=== PATIENT | female | born 1960 | race Caucasian/White ===

== ENCOUNTER 2017-06-13 23:24 | Inpatient (IN) | payer MEDICARE ==
[2017-06-13] MEDS ORDERED: LORazepam 2 MG/ML INJ IM STA ×2 (23:35→23:52)
[2017-06-13] MEDS ORDERED: risperiDONE 1 MG TAB PO STA (23:36)
[2017-06-13] MEDS ORDERED: diphenhydrAMINE 50 MG/ML 1 ML VIAL IM STA (23:36)
[2017-06-13] MEDS ORDERED: SODIUM CHLORIDE 0.9% 1,000 ML IV STA (23:38)
--- NOTE | 2017-06-13 23:55 | ED ---
Psych HPI - General Source: EMS Mode of arrival: EMS <Rodrigue Willingham - Last Filed: 06/14/17 02:02> <Yuri Aj - Last Filed: 06/14/17 03:00> - General Chief Complaint: Psychiatric Symptoms Stated Complaint: Mental health Time Seen by Provider: 06/13/17 23:35 - History of Present Illness Initial Comments: Patient brought in for psychiatric evaluation. Patient has a history of bipolar , depression, autism per EMS. reports patient has been rambling and talking repeatedly all day. He states patient was seen by her psychiatrist as an outpatient and office today, they talked for about 2 hours and patient calm down, however when they got home patient began rambling repeatedly again. states patient has recurrent episodes like this. states patient administers her own medications, does not know for sure if she took them today. Denies patient ever using drugs or alcohol. Denies suspicion of overdose of drugs. states he has patient bottles and none were missing. Denies violent or aggressive behavior. states she just talks and talks repeatedly. Denies self-harm. Denies suicidal ideation. Denies homicidal ideation. state patient knows where she is, what she is doing , what his name is, who she is, however she just rambles on talking about things. History Limited as patient unable to provide any history. (Rodrigue Willingham) - Related Data Home Medications Medication Instructions Recorded Confirmed Levothyroxine Sodium [Synthroid] 100 mcg PO DAILY 08/07/13 06/14/17 OXcarbazepine [Trileptal] 450 mg PO BID 08/07/13 06/14/17 Venlafaxine HCl ER [Effexor Xr] 300 mg PO DAILY 08/07/13 06/14/17 Zaleplon 20 mg PO HS 08/07/13 06/14/17 clonazePAM [KlonoPIN] 0.5 mg PO DIRECTED PRN 08/07/13 06/14/17 lamoTRIgine 200 mg PO BID 08/07/13 06/14/17 risperiDONE 0.25 mg PO HS 08/07/13 06/14/17 Allergies Allergy/AdvReac Type Severity Reaction Status Date / Time latex Allergy Severe Rash/Hives, Verified 08/07/13 11:35 severe pain Sulfa (Sulfonamide Allergy Severe Dyspnea Verified 08/07/13 11:35 Antibiotics) Review of Systems ROS Other: All systems not noted in ROS Statement are negative. Limitations: ROS unobtainable due to patients medical condition Psychiatric: Reports: other (Rambling speech). Denies: homicidal thoughts, suicidal thoughts <Rodrigue Willingham P - Last Filed: 06/14/17 02:02> ROS Other: All systems not noted in ROS Statement are negative. <Yuri Aj - Last Filed: 06/14/17 03:00> ROS Statement: Those systems with pertinent positive or pertinent negative responses have been documented in the HPI. Past Medical History Past Medical History: Asthma Additional Past Medical History / Comment(s): 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, elevated bp-no rx, IBS,constipation, interstitial cystitis, hypoglycemia, "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 autism and aspergers" History of Any Multi-Drug Resistant Organisms: None Reported Past Surgical History: Back Surgery Additional Past Surgical History / Comment(s): pain stimulator-inserted/removed Past Anesthesia/Blood Transfusion Reactions: No Reported Reaction Past Psychological History: Anxiety, Bipolar, PTSD Smoking Status: Never smoker <Rodrigue Willingham P - Last Filed: 06/14/17 02:02> General Exam General appearance: alert Head exam: Present: atraumatic, normocephalic Eye exam: Present: normal appearance, PERRL, EOMI. Absent: scleral icterus, conjunctival injection, nystagmus Pupils: Present: normal accommodation, other (Pupils 4 mm and reactive bilaterally. Eye movements intact bilaterally.). Absent: unequal, miosis, mydriatic ENT exam: Present: normal exam, normal oropharynx, mucous membranes moist, other (Mucous membranes moist, no increase salivation) Neck exam: Present: normal inspection, full ROM, other (Range of motion of the neck. No meningismus). Absent: meningismus Respiratory exam: Present: normal lung sounds bilaterally, other (No rest for distress. Oxygen saturation 90% on room air. No tachypnea. No accessory muscle usage.). Absent: respiratory distress, wheezes, rales, rhonchi, stridor Cardiovascular Exam: Present: regular rate, tachycardia (Mild tachycardia.) GI/Abdominal exam: Present: soft. Absent: distended, tenderness, guarding, rebound, rigid (Obese) Extremities exam: Present: normal inspection, normal capillary refill. Absent: joint swelling Back exam: Present: normal inspection Neurological exam: Present: alert, other (Patient moves all extremities. GCS 15. Patient does not follow commands when asked. Patient does have purposeful movements.) Psychiatric exam: Present: anxious, manic, other (Patient has pressured rapid speech, tangential speech, talking about going to the airport, tach and her doctors are, patient can briefly be redirected when handed her phone, but then begins rambling off topic again. ). Absent: agitated, homicidal ideation, suicidal ideation Skin exam: Present: warm, dry, intact, normal color. Absent: diaphoretic (No flushing, no diaphoresis, skin warm and dry intact, no abnormalities of the skin appreciated.) <Rodrigue Willingham - Last Filed: 06/14/17 02:02> <Yuri Aj - Last Filed: 06/14/17 03:00> - General Exam Comments Initial Comments: Patient sitting up in bed, moving all extremities, alert, repetitively talking. Makes eye contact. Does not commands. Patient does have purposeful movements. Patient does not appear in pain. Patient did not appear infectious or sickly. (Rodrigue Willingham) Vital Signs 06/13/17 06/14/17 06/14/17 23:26 00:13 02:06 Temperature 98.1 F 97.2 F L Pulse Rate 107 H 96 Respiratory 24 20 Rate Blood Pressure 218/92 177/80 O2 Sat by Pulse 98 99 Oximetry Medical Decision Making - Lab Data Result diagrams: 06/14/17 00:50 06/14/17 00:50 <Rodrigue Willingham - Last Filed: 06/14/17 02:02> - Lab Data Result diagrams: 06/14/17 00:50 06/14/17 00:50 <Yuri Aj - Last Filed: 06/14/17 03:00> - Medical Decision Making Patient has a history of anxiety, on Klonopin, 2 mg Ativan given. 50 mg Benadryl given. EKG normal sinus rhythm, wandering baseline as patient was agitated, no obvious ST or T-wave changes appreciated, QTc 480. QRS 78 ms ND 144 Patient appears to be having psychotic manic episode, with rapid pressured speech. Temperature normal. At this time no obvious indications of serotonin syndrome, NMS, anticholanergic toxicity. No reported overdose on medications. We'll continue to monitor and give supportive care. We'll give night dose of Risperdal. Venlafaxine held for possible serotonin syndrome given elevated heart rate and blood pressure. does state that patient has typical episodes like this, that symptoms were able to be resolved by discussion with her psychiatrist in office today, and then symptoms returned after patient left psychiatrist office. Symptoms may be secondary to brandon, behavioral. We'll have psych come and evaluate patient in ER. Patient signed out to Dr. Aj, we'll continue monitoring patient, follow-up on site evaluation and recommendations. (Rodrigue Willingham) - Lab Data Lab Results 06/14/17 06/14/17 06/14/17 Range/Units 00:50 00:50 02:40 WBC 11.4 H (3.8-10.6) k/uL RBC 4.45 (3.80-5.40) m/uL Hgb 13.2 (11.4-16.0) gm/dL Hct 38.5 (34.0-46.0) % MCV 86.6 (80.0-100.0) fL MCH 29.6 (25.0-35.0) pg MCHC 34.2 (31.0-37.0) g/dL RDW 13.4 (11.5-15.5) % Plt Count 385 (150-450) k/uL Neutrophils % 81 % Lymphocytes % 12 % Monocytes % 4 % Eosinophils % 1 % Basophils % 0 % Neutrophils # 9.2 H (1.3-7.7) k/uL Lymphocytes # 1.4 (1.0-4.8) k/uL Monocytes # 0.5 (0-1.0) k/uL Eosinophils # 0.1 (0-0.7) k/uL Basophils # 0.0 (0-0.2) k/uL Sodium 138 (137-145) mmol/L Potassium 4.4 (3.5-5.1) mmol/L Chloride 98 (98-107) mmol/L Carbon Dioxide 22 (22-30) mmol/L Anion Gap 18 mmol/L BUN 16 (7-17) mg/dL Creatinine 1.00 (0.52-1.04) mg/dL Est GFR (CKD-EPI)AfAm 74 (>60 ml/min/1.73 sqM) Est GFR (CKD-EPI)NonAf 64 (>60 ml/min/1.73 sqM) Glucose 110 H (74-99) mg/dL Calcium 10.6 H (8.4-10.2) mg/dL Total Bilirubin 0.5 (0.2-1.3) mg/dL Conjugated Bilirubin 0.0 (0.0-0.3) mg/dL Unconjugated Bilirubin 0.2 (0.0-1.1) mg/dL Delta Bilirubin 0.3 H (0.0-0.2) mg/dL AST 51 H (14-36) U/L ALT 44 (9-52) U/L Alkaline Phosphatase 133 H (38-126) U/L Total Protein 7.5 (6.3-8.2) g/dL Albumin 4.8 (3.5-5.0) g/dL TSH 0.887 (0.465-4.680) mIU/L Urine Color Yellow Urine Appearance Clear (Clear) Urine pH 7.0 (5.0-8.0) Ur Specific [place] 1.010 (1.001-1.035) Urine Protein Trace H (Negative) Urine Glucose (UA) Negative (Negative) Urine Ketones Negative (Negative) Urine Blood Negative (Negative) Urine Nitrite Negative (Negative) Urine Bilirubin Negative (Negative) Urine Urobilinogen <2.0 (<2.0) mg/dL Ur Leukocyte Esterase Small H (Negative) Urine RBC 1 (0-5) /hpf Urine WBC 3 (0-5) /hpf Ur Squamous Epith Cells 5 H (0-4) /hpf Hyaline Casts 3 H (0-2) /lpf Urine Mucus Rare H (None) /hpf Salicylates <1.0 mg/dL Urine Opiates Screen Not Detected (NotDetected) Ur Oxycodone Screen Not Detected (NotDetected) Urine Methadone Screen Not Detected (NotDetected) Ur Propoxyphene Screen Not Detected (NotDetected) Acetaminophen <10.0 ug/mL Ur Barbiturates Screen Not Detected (NotDetected) U Tricyclic Antidepress Not Detected (NotDetected) Ur Phencyclidine Scrn Not Detected (NotDetected) Ur Amphetamines Screen Not Detected (NotDetected) U Methamphetamines Scrn Not Detected (NotDetected) U Benzodiazepines Scrn Not Detected (NotDetected) Urine Cocaine Screen Not Detected (NotDetected) U Marijuana (THC) Screen Not Detected (NotDetected) Serum Alcohol <10 mg/dL Disposition Is patient prescribed a controlled substance at discharge?: No <Rodrigue Willingham - Last Filed: 06/14/17 02:02> Time of Disposition: 03:00 <Yuri Aj - Last Filed: 06/14/17 03:00> Clinical Impression: Bipolar disorder with severe brandon Disposition: ADMITTED IP TO THIS [facility] Condition: Good Referrals: Jerome Ford MD [Primary Care Provider] - 1-2 days
[2017-06-14 01:02] LABS: Basophils % (A) 0 %; Eosinophils # (A) 0.1 k/uL (0-0.7); Eosinophils % (A) 1 %; HCT 38.5 % (34.0-46.0); HGB 13.2 gm/dL (11.4-16.0); Lymphocytes # (A) 1.4 k/uL (1.0-4.8); Lymphocytes % (A) 12 %; MCH 29.6 pg (25.0-35.0); MCHC 34.2 g/dL (31.0-37.0); MCV 86.6 fL (80.0-100.0); Mean Platelet Volume 5.9; Monocytes # (A) 0.5 k/uL (0-1.0); Monocytes % (A) 4 %; Neutrophils # (A) 9.2 k/uL (1.3-7.7); Neutrophils % (A) 81 %; Platelet Count 385 k/uL (150-450); RBC 4.45 m/uL (3.80-5.40); RDW 13.4 % (11.5-15.5); WBC 11.4 k/uL (3.8-10.6)
[2017-06-14 01:14] LABS: ALT 44 U/L (9-52); AST 51 U/L (14-36); Acetaminophen <10.0 ug/mL; Albumin 4.8 g/dL (3.5-5.0); Alcohol <10 mg/dL; Alkaline Phosphatase 133 U/L (38-126); Anion Gap 18 mmol/L; Bilirubin, Delta 0.3 mg/dL (0.0-0.2); Bilirubin,Unconjugated 0.2 mg/dL (0.0-1.1); Blood Urea Nitrogen 16 mg/dL (7-17); Calcium 10.6 mg/dL (8.4-10.2); Carbon Dioxide 22 mmol/L (22-30); Chloride 98 mmol/L (98-107); Glucose 110 mg/dL (74-99); Potassium 4.4 mmol/L (3.5-5.1); Salicylate <1.0 mg/dL; Sodium 138 mmol/L (137-145); Total Bilirubin 0.5 mg/dL (0.2-1.3); Total Protein 7.5 g/dL (6.3-8.2)
[2017-06-14] MEDS ORDERED: clonazePAM 0.5 MG TAB PO PRN (01:46)
[2017-06-14] MEDS ORDERED: SODIUM CHLORIDE 0.9% 1,000 ML IV STA ×2 (01:52)
[2017-06-14 02:51] LABS: Appearance,Urine Clear (Clear); Bilirubin,Urine Negative (Negative); Blood,Urine Negative (Negative); Color,Urine Yellow; Glucose,Urine (UA) Negative (Negative); Hyaline Casts,Urine 3 /lpf (0-2); Ketones,Urine Negative (Negative); Leukocyte Esterase,Urine Small (Negative); Mucus,Urine Rare /hpf; Nitrite,Urine Negative (Negative); Protein,Urine Trace (Negative); RBC,Urine 1 /hpf (0-5); Squamous Epithelial Cell,Urine 5 /hpf (0-4); Urobilinogen,Urine <2.0 mg/dL (<2.0); WBC,Urine 3 /hpf (0-5)
[2017-06-14 02:57] LABS: Amphetamine Screen,Urine Not Detected (NotDetected); Cocaine Screen,Urine Not Detected (NotDetected); Opiate Screen,Urine Not Detected (NotDetected); Phencyclidine Screen,Urine Not Detected (NotDetected); Urn Cannabinoid Scrn Not Detected (NotDetected)
[2017-06-14 02:58] LABS: Barbiturate Screen,Urine Not Detected (NotDetected); Benzodiazepines Screen,Urine Not Detected (NotDetected); Methadone Screen, Urine Not Detected (NotDetected); Oxycodone Screen, Urine Not Detected (NotDetected); Tricyclic Antidepressant,Urine Not Detected (NotDetected)
[2017-06-14] MEDS ORDERED: ZIPRASIDONE 20 MG VIAL IM STA (02:59)
[2017-06-14] MEDS ORDERED: ZIPRASIDONE 20 MG VIAL IM PRN (04:13)
[2017-06-14] MEDS ORDERED: LORazepam 1 MG TAB PO PRN ×2 (04:13→04:21)
[2017-06-14] MEDS ORDERED: ACETAMINOPHEN TAB 325 MG TAB PO PRN (04:13)
[2017-06-14] MEDS ORDERED: MAG HYDROX/AL HYDROX/SIMETH 30 ML CUP PO PRN (04:13)
[2017-06-14] MEDS ORDERED: MAGNESIUM HYDROXIDE 2,400 MG/10 ML CUP PO PRN (04:13)
[2017-06-14] MEDS ORDERED: LORazepam 2 MG/ML INJ IM PRN (04:20)
[2017-06-14] MEDS ORDERED: VENLAFAXINE HCL ER 150 MG CAP PO SCH (09:00)
[2017-06-14] MEDS ORDERED: OXcarbazepine 150 MG TAB PO SCH (09:00)
[2017-06-14] MEDS: LEVOTHYROXINE 100 MCG TAB PO SCH (09:39)
[2017-06-14] MEDS: OXcarbazepine 300 MG TAB PO SCH ×2 (09:39→21:06)
[2017-06-14] MEDS: lamoTRIgine 100 MG TAB PO SCH ×2 (09:40→21:06)
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
[2017-06-14 14:06] LABS: Hemoglobin A1C 5.6 % (4.0-6.0)
[2017-06-14] MEDS ORDERED: risperiDONE 0.25 MG TAB PO SCH (21:00)
--- NOTE | 2017-06-14 22:04 | P.CONS ---
History of Present Illness - Reason for Consult Consult date: 06/14/17 Requesting physician: Palmer Lopez - Chief Complaint Manic episode, sensory overload - History of Present Illness This is a 56-year-old old lady patient of Dr. Scherer. She has underlying history of asthma, fibromyalgia, Raynaud's, PTSD, IBS, Asperger's syndrome and autism, and prolapsed rectum for which she is scheduled to have this surgery will soon. No anticipated date for deep rectal prolapse at all. Patient presents emergency room are she has been rambling in conversation, patient has difficulty in word recall, she calls "charade" as she says that she's been having a lot of stress as the 's father has been in the bed and they've been making arrangements for , patient has not had any sleep for several days now, patient has had racing thoughts, unable to slow down her thought processes, patient is admitted to the mental health unit, patient denies any suicidal ideations, patient denies any self-harm or harm to others, she also has 2 major episodes of PTSD in the past, and is currently disabled. Next Patient denies any acute medical symptoms including chest pain or shortness of breath, patient denies any palpitations or abdominal pain or dysuria, no hematuria, she does have insomnia without any complaints of migraines or diplopia Review of Systems Constitutional: Reports as per HPI, Denies anorexia, Denies chills, Denies chronic headaches, Denies chronic pain, Denies daytime sleepiness, Denies fatigue, Denies fever, Denies lethargy, Denies malaise, Denies night sweats, Denies poor appetite, Denies sweats, Denies weakness, Denies weight gain, Denies weight loss Ears, nose, mouth and throat: Reports as per HPI, Denies ant. neck pain, Denies bleeding gums, Denies dental pain, Denies dysphagia, Denies epistaxis, Denies headache, Denies hoarseness, Denies mouth pain, Denies nasal congestion, Denies nasal discharge, Denies neck fullness/pressure, Denies neck lump, Denies nose pain, Denies odynophagia, Denies post-nasal drip, Denies sinus pain, Denies sinus pressure, Denies swelling in mouth, Denies swelling in throat, Denies sore throat, Denies vertigo, Denies voice changes Cardiovascular: Reports as per HPI, Denies chest pain, Denies claudication, Denies decreased exercise tolerance, Denies dyspnea on exertion, Denies edema, Denies high blood pressure, Denies irregular heart beat, Denies leg edema, Denies lightheadedness, Denies orthopnea, Denies palpitations, Denies paroxysmal nocturnal dyspnea, Denies phlebitis, Denies rapid heart beat, Denies shortness of breath, Denies syncope Respiratory: Reports as per HPI, Denies congestion, Denies cough, Denies cough with sputum, Denies dyspnea, Denies excessive sputum, Denies hemoptysis, Denies home oxygen, Denies pain, Denies pain on inspiration, Denies pleurisy, Denies respiratory infections, Denies sleep apnea, Denies snoring, Denies wheezing Gastrointestinal: Reports as per HPI, Denies abdominal pain, Denies belching, Denies bloating, Denies BRBPR, Denies change in bowel habits, Denies coffee ground emesis, Denies constipation, Denies diarrhea, Denies dyspepsia, Denies early satiety, Denies excessive gas, Denies heartburn, Denies hematemesis, Denies hematochezia, Denies indigestion, Denies jaundice, Denies lactose intolerance, Denies loss of appetite, Denies melena, Denies nausea, Denies vomiting Genitourinary: Reports as per HPI, Denies abnormal vaginal bleeding, Denies decreased libido, Denies difficulty conceiving, Denies difficulty voiding, Denies dysmenorrhea, Denies dyspareunia, Denies dysuria, Denies flank pain, Denies genital sores, Denies hematuria, Denies hot flashes, Denies incomplete emptying, Denies kidney stones, Denies menorrhagia, Denies mixed incontinence, Denies nocturia, Denies pelvic pain, Denies post void dribbling, Denies , Denies prolapse symptoms, Denies stress incontinence, Denies urge incontinence , Denies urgency, Denies urinary frequency, Denies vaginal discharge, Denies vaginal dryness, Denies vaginal itching, Denies vaginal odor Menstruation: Reports as per HPI, Reports postmenopausal Musculoskeletal: Reports as per HPI Integumentary: Reports as per HPI Neurological: Reports as per HPI, Denies aphasia, Denies ataxia, Denies balance difficulties, Denies burning pain, Denies change in mentation, Denies change in smell/taste, Denies change in speech, Denies confusion, Denies convulsions, Denies double vision, Denies gait dysfunction, Denies head injury, Denies headaches, Denies hearing difficulties, Denies lack of coordination, Denies loss of vision, Denies memory loss, Denies migraines, Denies motor disturbance, Denies numbness, Denies paralysis, Denies paresthesias, Denies seizures, Denies sensory deficit, Denies spasticity, Denies syncope, Denies tic, Denies tingling , Denies transient paralysis, Denies tremors, Denies vertigo, Denies weakness, Denies visual changes Psychiatric: Reports as per HPI, Reports anxiety, Reports difficulty concentrating, Reports insomnia, Reports irritability, Reports sleep disturbances Endocrine: Reports as per HPI, Denies cold intolerance, Denies deepening of the voice, Denies excessive sweating, Denies excessive thirst, Denies fatigue, Denies flushing, Denies heat intolerance, Denies high blood sugars, Denies increase in ring/shoe/hat size, Denies low blood sugars, Denies nocturia, Denies palpitations, Denies polydipsia, Denies polyphagia, Denies polyuria, Denies proptosis, Denies recent glucocorticoid use, Denies thyroid mass, Denies weight change Hematologic/Lymphatic: Reports as per HPI, Denies easy bleeding, Denies easy bruising, Denies lymphadenopathy, Denies lymphedema, Denies thrombophilia Allergic/Immunologic: Reports as per HPI, Denies allergic rhinitis, Denies anaphylaxis, Denies angioedema, Denies gluten intolerance, Denies persistent infections, Denies seasonal allergies, Denies urticaria, Denies wheezing Past Medical History Past Medical History: Asthma Additional Past Medical History / Comment(s): 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, elevated bp-no rx, IBS,constipation, interstitial cystitis, hypoglycemia, "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 autism and aspergers" History of Any Multi-Drug Resistant Organisms: None Reported Past Surgical History: Back Surgery Additional Past Surgical History / Comment(s): pain stimulator-inserted/removed Past Anesthesia/Blood Transfusion Reactions: No Reported Reaction Smoking Status: Never smoker Additional History: Mother with asthma currently alive, has glaucoma father has deafness, alive one brother, has asthma and gluten issues, sister has asthma with an issue Synthroid, 2 daughters with depression, one son healthy Medications and Allergies Home Medications Medication Instructions Recorded Confirmed Type Levothyroxine Sodium [Synthroid] 100 mcg PO DAILY 08/07/13 06/14/17 History OXcarbazepine [Trileptal] 450 mg PO BID 08/07/13 06/14/17 History Venlafaxine HCl ER [Effexor Xr] 300 mg PO DAILY 08/07/13 06/14/17 History Zaleplon 20 mg PO HS 08/07/13 06/14/17 History clonazePAM [KlonoPIN] 0.5 mg PO DIRECTED PRN 08/07/13 06/14/17 History lamoTRIgine 200 mg PO BID 08/07/13 06/14/17 History risperiDONE 0.25 mg PO HS 08/07/13 06/14/17 History Allergies Allergy/AdvReac Type Severity Reaction Status Date / Time latex Allergy Severe Rash/Hives, Verified 06/14/17 04:23 severe pain Sulfa (Sulfonamide Allergy Severe Dyspnea Verified 06/14/17 04:23 Antibiotics) Physical Exam Vitals: Vital Signs Temp Pulse Pulse Resp BP BP Pulse Ox 06/14/17 04:33 91 18 165/70 95 06/14/17 04:26 98.0 F 79 18 157/70 99 06/14/17 02:06 96 20 177/80 99 06/14/17 00:13 97.2 F L 06/13/17 23:26 98.1 F 107 H 24 218/92 98 Intake and Output 06/13/17 06/14/17 06/14/17 22:59 06:59 14:59 Other: Weight 113.398 kg - Constitutional General appearance: no average body habitus, cooperative, no disheveled, no mild distress, no morbidly obese, no acute distress, obese, no severe distress, no thin - EENT Eyes: anicteric sclerae, EOMI, PERRLA, dentition normal, normal appearance ENT: hard of hearing, no hearing grossly normal, NA/AT, normal oropharynx, no other, no pharyngeal erythema, no thrush, no tonsillar exudates, no tonsillar swelling - Neck Neck: no lymphadenopathy, no normal ROM, no other, no rigidity, no stridor, no thyromegaly - Respiratory Respiratory: bilateral: CTA, negative: diminished, dullness, rales, rhonchi, wheezing, prolonged expiration - Cardiovascular Rhythm: regular Heart sounds: normal: S1, S2 Abnormal Heart Sounds: no systolic murmur, no diastolic murmur, no rub, no S3 Gallop, no S4 Gallop, no click, no other - Gastrointestinal General gastrointestinal: normal bowel sounds, soft - Integumentary Integumentary: decreased turgor, normal - Neurologic Neurologic: CNII-XII intact - Musculoskeletal Musculoskeletal: gait normal, strength equal bilaterally - Psychiatric Psychiatric: A&O x's 3, appropriate affect, intact judgment & insight Results CBC & Chem 7: 06/14/17 00:50 06/14/17 00:50 Labs: Abnormal Lab Results - Last 24 Hours (Table) 06/14/17 06/14/17 06/14/17 Range/Units 00:50 00:50 02:40 WBC 11.4 H (3.8-10.6) k/uL Neutrophils # 9.2 H (1.3-7.7) k/uL Glucose 110 H (74-99) mg/dL Calcium 10.6 H (8.4-10.2) mg/dL Delta Bilirubin 0.3 H (0.0-0.2) mg/dL AST 51 H (14-36) U/L Alkaline Phosphatase 133 H (38-126) U/L Urine Protein Trace H (Negative) Ur Leukocyte Esterase Small H (Negative) Ur Squamous Epith Cells 5 H (0-4) /hpf Hyaline Casts 3 H (0-2) /lpf Urine Mucus Rare H (None) /hpf Laboratory Results WBC 11.4 k/uL (3.8-10.6) H 06/14/17 00:50 RBC 4.45 m/uL (3.80-5.40) 06/14/17 00:50 Hgb 13.2 gm/dL (11.4-16.0) 06/14/17 00:50 Hct 38.5 % (34.0-46.0) 06/14/17 00:50 MCV 86.6 fL (80.0-100.0) 06/14/17 00:50 MCH 29.6 pg (25.0-35.0) 06/14/17 00:50 MCHC 34.2 g/dL (31.0-37.0) 06/14/17 00:50 RDW 13.4 % (11.5-15.5) 06/14/17 00:50 Plt Count 385 k/uL (150-450) 06/14/17 00:50 Neutrophils % 81 % 06/14/17 00:50 Lymphocytes % 12 % 06/14/17 00:50 Monocytes % 4 % 06/14/17 00:50 Eosinophils % 1 % 06/14/17 00:50 Basophils % 0 % 06/14/17 00:50 Neutrophils # 9.2 k/uL (1.3-7.7) H 06/14/17 00:50 Lymphocytes # 1.4 k/uL (1.0-4.8) 06/14/17 00:50 Monocytes # 0.5 k/uL (0-1.0) 06/14/17 00:50 Eosinophils # 0.1 k/uL (0-0.7) 06/14/17 00:50 Basophils # 0.0 k/uL (0-0.2) 06/14/17 00:50 Sodium 138 mmol/L (137-145) 06/14/17 00:50 Potassium 4.4 mmol/L (3.5-5.1) 06/14/17 00:50 Chloride 98 mmol/L (98-107) 06/14/17 00:50 Carbon Dioxide 22 mmol/L (22-30) 06/14/17 00:50 Anion Gap 18 mmol/L 06/14/17 00:50 BUN 16 mg/dL (7-17) 06/14/17 00:50 Creatinine 1.00 mg/dL (0.52-1.04) 06/14/17 00:50 Est GFR (CKD-EPI)AfAm 74 (>60 ml/min/1.73 sqM) 06/14/17 00:50 Est GFR (CKD-EPI)NonAf 64 (>60 ml/min/1.73 sqM) 06/14/17 00:50 Glucose 110 mg/dL (74-99) H 06/14/17 00:[address] Glu mg/dL 114 06/14/17 04:22 Hemoglobin A1c 5.6 % (4.0-6.0) 06/14/17 04:22 Calcium 10.6 mg/dL (8.4-10.2) H 06/14/17 00:50 Total Bilirubin 0.5 mg/dL (0.2-1.3) 06/14/17 00:50 Conjugated Bilirubin 0.0 mg/dL (0.0-0.3) 06/14/17 00:50 Unconjugated Bilirubin 0.2 mg/dL (0.0-1.1) 06/14/17 00:50 Delta Bilirubin 0.3 mg/dL (0.0-0.2) H 06/14/17 00:50 AST 51 U/L (14-36) H 06/14/17 00:50 ALT 44 U/L (9-52) 06/14/17 00:50 Alkaline Phosphatase 133 U/L (38-126) H 06/14/17 00:50 Total Protein 7.5 g/dL (6.3-8.2) 06/14/17 00:50 Albumin 4.8 g/dL (3.5-5.0) 06/14/17 00:50 TSH 0.887 mIU/L (0.465-4.680) 06/14/17 00:50 Urine Color Yellow 06/14/17 02:40 Urine Appearance Clear (Clear) 06/14/17 02:40 Urine pH 7.0 (5.0-8.0) 06/14/17 02:40 Ur Specific [place] 1.010 (1.001-1.035) 06/14/17 02:40 Urine Protein Trace (Negative) H 06/14/17 02:40 Urine Glucose (UA) Negative (Negative) 06/14/17 02:40 Urine Ketones Negative (Negative) 06/14/17 02:40 Urine Blood Negative (Negative) 06/14/17 02:40 Urine Nitrite Negative (Negative) 06/14/17 02:40 Urine Bilirubin Negative (Negative) 06/14/17 02:40 Urine Urobilinogen <2.0 mg/dL (<2.0) 06/14/17 02:40 Ur Leukocyte Esterase Small (Negative) H 06/14/17 02:40 Urine RBC 1 /hpf (0-5) 06/14/17 02:40 Urine WBC 3 /hpf (0-5) 06/14/17 02:40 Ur Squamous Epith Cells 5 /hpf (0-4) H 06/14/17 02:40 Hyaline Casts 3 /lpf (0-2) H 06/14/17 02:40 Urine Mucus Rare /hpf (None) H 06/14/17 02:40 Salicylates <1.0 mg/dL 06/14/17 00:50 Urine Opiates Screen Not Detected (NotDetected) 06/14/17 02:40 Ur Oxycodone Screen Not Detected (NotDetected) 06/14/17 02:40 Urine Methadone Screen Not Detected (NotDetected) 06/14/17 02:40 Ur Propoxyphene Screen Not Detected (NotDetected) 06/14/17 02:40 Acetaminophen <10.0 ug/mL 06/14/17 00:50 Ur Barbiturates Screen Not Detected (NotDetected) 06/14/17 02:40 U Tricyclic Antidepress Not Detected (NotDetected) 06/14/17 02:40 Ur Phencyclidine Scrn Not Detected (NotDetected) 06/14/17 02:40 Ur Amphetamines Screen Not Detected (NotDetected) 06/14/17 02:40 U Methamphetamines Scrn Not Detected (NotDetected) 06/14/17 02:40 U Benzodiazepines Scrn Not Detected (NotDetected) 06/14/17 02:40 Urine Cocaine Screen Not Detected (NotDetected) 06/14/17 02:40 U Marijuana (THC) Screen Not Detected (NotDetected) 06/14/17 02:40 Serum Alcohol <10 mg/dL 06/14/17 00:50 Assessment and Plan Plan: 1. Severe manic episode history of bipolar 1 disorder with sensory overload, patient currently is in the mental health unit with psychiatric unit, patient was started on with stabilization, Trileptal, and is on Lamictal. No EKG for review today 2. Asthma without any exacerbation 3. Hypothyroidism on levothyroxine, the thyroid levels are normal for euthyroidism 4. Insomnia secondary to bipolar 1 disorder, patient has G Luda when necessary , Ativan when necessary, for mood stabilization 5 Transaminitis without any jaundice, hepatitis panel to be screened transaminitis most likely secondary to nonalcoholic fatty liver disease along with medication effects 6. BMI of 38, hemoglobin A1c of 5.6 Thank you has a noncurrent allowing us to participate in the care of your patient. Please do not hesitate to contact us for any future medical needs for the patient
[2017-06-15 06:00] LABS: Cholesterol 254 mg/dL (<200); HDL Cholesterol 98 mg/dL (40-60); LDL Cholesterol,Calculated 137 mg/dL (0-99); Triglycerides 93 mg/dL (<150)
[2017-06-15] MEDS: LEVOTHYROXINE 100 MCG TAB PO SCH (06:21)
[2017-06-15 06:49] VITALS: RESP 16
[2017-06-15] MEDS: OXcarbazepine 300 MG TAB PO SCH ×2 (08:25→20:12)
[2017-06-15] MEDS: lamoTRIgine 100 MG TAB PO SCH ×2 (08:25→20:12)
[2017-06-15] MEDS ORDERED: LORazepam 1 MG TAB PO PRN (09:48)
[2017-06-15] MEDS ORDERED: LORazepam 2 MG/ML INJ IM PRN (09:49)
--- NOTE | 2017-06-15 10:09 | P.PN ---
Progress Note - Text Progress Note Date: 06/15/17 Patient was seen for a follow-up examination. She said she was given a shot yesterday afternoon which made her too sleepy and sluggish. She had a shot very early in the morning yesterday which also had made her very sleepy and sluggish. She agreed to decrease dose of when necessary Ativan. She feels a little more alert and better today. She continues to talk about her autism and blames it for lots of her issues/problems. She firmly believes she has autism and bipolar disorder at the same time. She also believes she has about 5 seconds gap between the words she is spoken to and for her to process it. She says because of this she tries to read lips. She was counseled a different way to handle this is triggered of reading lips. She agreed to try it. Patient attends groups and socializes very selectively with others. She said she is scared of some other patients because of the way they behave. She was again counseled about this and was asked to report to the staff if anyone bothers her. She was very appreciative of this. This is an overweight/obese ambulatory white female with adequate hygiene. She does not show any psychomotor agitation or retardation. Her speech is spontaneous and goal-directed. But she is quite preoccupied with having autism and how it interferes with her life. Her mood is euthymic to cheerful and affect is appropriate to the thought content. She continues to deny suicide and homicide thoughts. She denies hallucinations and delusional thinking. She is oriented with fair memory. Plan: Decrease when necessary Ativan's from 2 to 1 mg. Continue Lamictal, Trileptal, groups and other therapies.
[2017-06-16] MEDS: LEVOTHYROXINE 100 MCG TAB PO SCH (06:29)
[2017-06-16 07:12] VITALS: BP 162/70; PULSE 56; TEMP 97.9
[2017-06-16] MEDS: lamoTRIgine 100 MG TAB PO SCH (08:49)
[2017-06-16] MEDS: OXcarbazepine 300 MG TAB PO SCH (08:50)
--- NOTE | 2017-06-16 11:48 | P.DS ---
Providers Date of admission: 06/14/17 04:05 Expected date of discharge: 06/16/17 Attending physician: Palmer Lopez Consults: 06/14/17 04:13 Consult Physician Routine Consulting Provider: Jerome Ford Reason/Comments: For H & P for Medical Follow Up Do you want consulting provider notified?: Yes, Notify in am Primary care physician: Jerome Ford [facility] Course: Patient had her physical examination psychiatric evaluation and psychosocial evaluation. She was very agitated and received some when necessary medications of Geodon in the ER and Ativan after she came to the unit. She got some more when necessary medications in the unit for agitation. After her psychiatric evaluation it was agreed to continue her Lamictal and Trileptal for mood stabilization. Synthroid was continued for hypothyroidism. Effexor, Sonata Klonopin and risperidone were discontinued. Except for a couple of agitated behaviors she started to improve, her mood became more stable and normal, did not get agitated or hyperactive. She was also able to focus better. She was visited by her yesterday and apparently he was very happy to see her doing well and wanted to take her home today and see her outpatient psychiatrist tomorrow. Patient agreed with this plan and so she will be discharged today. Condition on discharge: This is an obese ambulatory white female with good hygiene. She does not show any psychomotor agitation or retardation. Her speech is spontaneous relevant and goal-directed. Her mood is euthymic and affect is appropriate. She continues to deny suicide and homicide thoughts. She denies hallucinations. But she seems to be fixated with the idea that she has autism and most of her problems are related to that. She is well oriented with adequate memory and concentration. Her insight is still poor but judgment seems to have improved. Diagnosis on discharge: Bipolar 1 disorder most recent episode manic severe F 31.13. ALLERGY to latex and sulfa. Hypothyroidism. Obesity. Patient was advised and agreed to take her medications as prescribed, not to drink alcohol or use drugs, learn better coping skills through therapy, not to drive or operate missionary if she feels sleepy, to call her psychiatrist or therapist if she feels unstable, that we'll up suicidal or homicidal thoughts and if she cannot get hold of them to go to the nearest ER. Plan - Discharge Summary New Discharge Prescriptions: New lamoTRIgine [LaMICtal] 200 mg PO BID 30 Days #60 tab OXcarbazepine [Trileptal] 300 mg PO BID 30 Days #60 tab Continue Levothyroxine Sodium [Synthroid] 100 mcg PO DAILY Discontinued Venlafaxine HCl ER [Effexor Xr] 300 mg PO DAILY OXcarbazepine [Trileptal] 450 mg PO BID risperiDONE 0.25 mg PO HS lamoTRIgine 200 mg PO BID clonazePAM [KlonoPIN] 0.5 mg PO DIRECTED PRN PRN Reason: Anxiety Zaleplon 20 mg PO HS Discharge Medication List Levothyroxine Sodium [Synthroid] 100 mcg PO DAILY 08/07/13 [History] OXcarbazepine [Trileptal] 300 mg PO BID 30 Days #60 tab 06/16/17 [Rx] lamoTRIgine [LaMICtal] 200 mg PO BID 30 Days #60 tab 06/16/17 [Rx] Follow up Appointment(s)/Referral(s): Dr. Gallegos, private [Other] - 06/17/17 12:00 pm Jerome Ford MD [Primary Care Provider] - 1-2 days
== END 2017-06-16 13:43 | disposition home or self-care (01) | DRG 885 ==
LOC: EC 23:24 → 3MHU 06-14 04:05
PROVIDERS: ADMIT Psychiatry & Neurology Psychiatry; ATTEND Psychiatry & Neurology Psychiatry
DX: F31.13 Bipolar disorder, current episode manic without psychotic features, severe (principal); E66.9 Obesity, unspecified; E03.9 Hypothyroidism, unspecified; F43.10 Post-traumatic stress disorder, unspecified; F84.5 Asperger's syndrome; I73.00 Raynaud's syndrome without gangrene; J45.909 Unspecified asthma, uncomplicated; K58.9 Irritable bowel syndrome, unspecified; M79.7 Fibromyalgia; Z82.5 Family history of asthma and other chronic lower respiratory diseases; Z91.040 Latex allergy status; Z83.511 Family history of glaucoma; Z88.2 Allergy status to sulfonamides; Z79.84 Long term (current) use of oral hypoglycemic drugs; Z79.899 Other long term (current) drug therapy; K62.3 Rectal prolapse; Z81.8 Family history of other mental and behavioral disorders; G47.00 Insomnia, unspecified; K76.0 Fatty (change of) liver, not elsewhere classified; Z68.38 Body mass index [BMI] 38.0-38.9, adult
CPT/HCPCS: 36415; 80048; 80061; 80076; 80183; 80306; 80320; 81001; 83036; 83520; 84443; 85025; 93005; 96372; 99285

== ENCOUNTER 2020-06-13 09:05 | Emergency (ER) | payer MEDICARE ==
[2020-06-13 09:24] VITALS: RESP 18
[2020-06-13] MEDS ORDERED: ASPIRIN 81 MG PO STA (09:38)
[2020-06-13] MEDS ORDERED: NITROGLYCERIN OINT 1 INCH/GM PACKET TOPICAL STA (09:38)
--- NOTE | 2020-06-13 09:44 | ED ---
General Adult HPI - General Chief complaint: Extremity Injury, Upper Stated complaint: left arm pain Time Seen by Provider: 06/13/20 09:30 Source: patient, RN notes reviewed Mode of arrival: ambulatory Limitations: no limitations - History of Present Illness Initial comments: Patient is a pleasant 59-year-old female presenting to the emergency Department with complaints of left arm discomfort. Patient did receive her immunization yesterday for coronavirus. Immunization was in the left arm. Patient states around 6:30 she had an episode of nausea and vomiting followed by discomfort radiating down her left arm. This lasted around 20 minutes then resolved. No history of similar symptoms previously. Patient denies any chest discomfort burning time. No neck or head pain. - Related Data Home Medications Medication Instructions Recorded Confirmed Levothyroxine Sodium [Synthroid] 100 mcg PO DAILY 08/07/13 06/13/20 Naproxen Sodium [Aleve] 220 mg PO Q12HR PRN 06/13/20 06/13/20 OLANZapine [ZyPREXA] 5 mg PO HS 06/13/20 06/13/20 Venlafaxine HCl ER [Effexor Xr] 150 mg PO DAILY 06/13/20 06/13/20 diphenhydrAMINE [Benadryl] 50 - 100 mg PO HS PRN 06/13/20 06/13/20 lamoTRIgine [LaMICtal] 50 mg PO BID 06/13/20 06/13/20 lamoTRIgine [LaMICtal] 200 mg PO BID 06/13/20 06/13/20 Previous Rx's Medication Instructions Recorded OXcarbazepine [Trileptal] 300 mg PO BID 30 Days #60 tab 06/16/17 Allergies Allergy/AdvReac Type Severity Reaction Status Date / Time latex Allergy Severe Rash/Hives, Verified 06/13/20 11:20 severe pain Sulfa (Sulfonamide Allergy Severe Dyspnea Verified 06/13/20 11:20 Antibiotics) Review of Systems ROS Statement: Those systems with pertinent positive or pertinent negative responses have been documented in the HPI. ROS Other: All systems not noted in ROS Statement are negative. Constitutional: Denies: fever Eyes: Denies: eye pain ENT: Denies: ear pain Respiratory: Denies: cough Cardiovascular: Denies: chest pain Endocrine: Denies: fatigue Gastrointestinal: Reports: as per HPI. Denies: abdominal pain Genitourinary: Denies: urgency Musculoskeletal: Reports: as per HPI Skin: Denies: rash Neurological: Denies: weakness Past Medical History Past Medical History: Asthma Additional Past Medical History / Comment(s): 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, elevated bp-no rx, IBS,constipation, interstitial cystitis, hypoglycemia, "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 autism and aspergers" History of Any Multi-Drug Resistant Organisms: None Reported Past Surgical History: Back Surgery Additional Past Surgical History / Comment(s): pain stimulator-inserted/removed Past Anesthesia/Blood Transfusion Reactions: No Reported Reaction Past Psychological History: Anxiety, Bipolar, PTSD Smoking Status: Never smoker Past Alcohol Use History: None Reported Past Drug Use History: None Reported General Exam Limitations: no limitations General appearance: alert, in no apparent distress Head exam: Present: normocephalic Eye exam: Present: normal appearance Neck exam: Present: normal inspection Respiratory exam: Present: normal lung sounds bilaterally. Absent: chest wall tenderness Cardiovascular Exam: Present: regular rate, normal rhythm Expanded Peripheral pulses: 2+: Radial (L) GI/Abdominal exam: Present: soft. Absent: tenderness Extremities exam: Present: normal inspection, full ROM. Absent: tenderness, calf tenderness Left Shoulder Exam: Present: normal inspection Upper Arm exam: Present: normal inspection. Absent: tenderness, swelling, erythema Elbow exam: Present: normal inspection Forearm Wrist exam: Present: normal inspection. Absent: tenderness, swelling, erythema Hand Wrist exam: Present: normal inspection Neurological exam: Present: alert Psychiatric exam: Present: normal affect, normal mood Skin exam: Present: normal color Course Vital Signs 06/13/20 06/13/20 06/13/20 09:19 10:02 12:13 Temperature 98.9 F Pulse Rate 64 68 67 Respiratory 18 18 18 Rate Blood Pressure 171/80 168/79 144/81 O2 Sat by Pulse 100 100 97 Oximetry EKG Findings - EKG Comments: EKG Findings:: Normal sinus rhythm with rate of 60. WA 176. QRS 84. QT 442. QTC 442. Normal axis. Normal QRS. No acute ST change. I did review EKG from [employer] Medical Decision Making - Medical Decision Making Case discussed in detail with Dr. Adams who recommends grabbing second troponin at this time and feels safe for discharge if reported as negative. Patient reevaluated and resting comfortably in bed without complaints. Patient and family updated on results and need for follow-up. They do have an appointment on Tuesday and are advised to keep this. - Lab Data Result diagrams: 06/13/20 10:06/13/20 10: Lab Results 06/13/20 06/13/20 06/13/20 Range/Units 10:01 10: 10:01 WBC 6.4 (3.8-10.6) k/uL RBC 4.37 (3.80-5.40) m/uL Hgb 12.7 (11.4-16.0) gm/dL Hct 37.2 (34.0-46.0) % MCV 85.2 (80.0-100.0) fL MCH 29.1 (25.0-35.0) pg MCHC 34.2 (31.0-37.0) g/dL RDW 14.5 (11.5-15.5) % Plt Count 277 (150-450) k/uL MPV 6.5 Neutrophils % 75 % Lymphocytes % 16 % Monocytes % 5 % Eosinophils % 3 % Basophils % 1 % Neutrophils # 4.8 (1.3-7.7) k/uL Lymphocytes # 1.0 (1.0-4.8) k/uL Monocytes # 0.3 (0-1.0) k/uL Eosinophils # 0.2 (0-0.7) k/uL Basophils # 0.0 (0-0.2) k/uL PT 10.4 (9.0-12.0) sec INR 1.0 (<1.2) APTT 26.6 (22.0-30.0) sec D-Dimer 0.18 (<0.60) mg/L FEU Sodium 128 L (137-145) mmol/L Potassium 4.4 (3.5-5.1) mmol/L Chloride 91 L (98-107) mmol/L Carbon Dioxide 27 (22-30) mmol/L Anion Gap 10 mmol/L BUN 12 (7-17) mg/dL Creatinine 0.95 (0.52-1.04) mg/dL Est GFR (CKD-EPI)AfAm 77 (>60 ml/min/1.73 sqM) Est GFR (CKD-EPI)NonAf 67 (>60 ml/min/1.73 sqM) Glucose 95 (74-99) mg/dL Calcium 9.8 (8.4-10.2) mg/dL Magnesium 1.9 (1.6-2.3) mg/dL Total Bilirubin 0.4 (0.2-1.3) mg/dL AST 49 H (14-36) U/L ALT 36 H (4-34) U/L Alkaline Phosphatase 106 (38-126) U/L Creatine Kinase 556 H (30-135) U/L Troponin I (0.000-0.034) ng/mL Total Protein 7.6 (6.3-8.2) g/dL Albumin 4.8 (3.5-5.0) g/dL 06/13/20 06/13/20 Range/Units 10:01 11:20 WBC (3.8-10.6) k/uL RBC (3.80-5.40) m/uL Hgb (11.4-16.0) gm/dL Hct (34.0-46.0) % MCV (80.0-100.0) fL MCH (25.0-35.0) pg MCHC (31.0-37.0) g/dL RDW (11.5-15.5) % Plt Count (150-450) k/uL MPV Neutrophils % % Lymphocytes % % Monocytes % % Eosinophils % % Basophils % % Neutrophils # (1.3-7.7) k/uL Lymphocytes # (1.0-4.8) k/uL Monocytes # (0-1.0) k/uL Eosinophils # (0-0.7) k/uL Basophils # (0-0.2) k/uL PT (9.0-12.0) sec INR (<1.2) APTT (22.0-30.0) sec D-Dimer (<0.60) mg/L FEU Sodium (137-145) mmol/L Potassium (3.5-5.1) mmol/L Chloride (98-107) mmol/L Carbon Dioxide (22-30) mmol/L Anion Gap mmol/L BUN (7-17) mg/dL Creatinine (0.52-1.04) mg/dL Est GFR (CKD-EPI)AfAm (>60 ml/min/1.73 sqM) Est GFR (CKD-EPI)NonAf (>60 ml/min/1.73 sqM) Glucose (74-99) mg/dL Calcium (8.4-10.2) mg/dL Magnesium (1.6-2.3) mg/dL Total Bilirubin (0.2-1.3) mg/dL AST (14-36) U/L ALT (4-34) U/L Alkaline Phosphatase (38-126) U/L Creatine Kinase (30-135) U/L Troponin I <0.012 <0.012 (0.000-0.034) ng/mL Total Protein (6.3-8.2) g/dL Albumin (3.5-5.0) g/dL - Radiology Data Radiology results: image reviewed (Chest x-ray with mild interstitial changes) Disposition Clinical Impression: Arm pain Disposition: HOME SELF-CARE Condition: Stable Additional Instructions: Please do follow-up with your primary care physician Tuesday as planned. Return for chest pain, difficulty breathing, vomiting, worsening or changing symptoms or other concerns. Aspirin daily. Is patient prescribed a controlled substance at d/c from ED?: No Referrals: Jerome Ford MD [Primary Care Provider] - 1-2 days Time of Disposition: 13:16
[2020-06-13 10:13] LABS: Basophils % (A) 1 %; Eosinophils # (A) 0.2 k/uL (0-0.7); Eosinophils % (A) 3 %; HCT 37.2 % (34.0-46.0); HGB 12.7 gm/dL (11.4-16.0); Lymphocytes % (A) 16 %; MCH 29.1 pg (25.0-35.0); MCHC 34.2 g/dL (31.0-37.0); MCV 85.2 fL (80.0-100.0); Mean Platelet Volume 6.5; Monocytes # (A) 0.3 k/uL (0-1.0); Monocytes % (A) 5 %; Neutrophils # (A) 4.8 k/uL (1.3-7.7); Neutrophils % (A) 75 %; Platelet Count 277 k/uL (150-450); RBC 4.37 m/uL (3.80-5.40); RDW 14.5 % (11.5-15.5); WBC 6.4 k/uL (3.8-10.6)
--- NOTE | 2020-06-13 10:16 | XR ---
EXAMINATION TYPE: XR chest 2V DATE OF EXAM: 06/13/2020 COMPARISON: 05/31/2011 TECHNIQUE: PA and lateral views submitted. HISTORY: Chest pain FINDINGS: The lungs are clear and there is no pneumothorax, pleural effusion, or focal pneumonia. Heart size stable coarsened interstitium. IMPRESSION: 1. Mildly coarsened interstitium relative to prior exam. Correlate for bronchitis, interstitial lung disease or mild interstitial pneumonitis..
[2020-06-13 10:27] LABS: Albumin 4.8 g/dL (3.5-5.0); Calcium 9.8 mg/dL (8.4-10.2); Magnesium 1.9 mg/dL (1.6-2.3); Potassium 4.4 mmol/L (3.5-5.1); Total Bilirubin 0.4 mg/dL (0.2-1.3); Total Protein 7.6 g/dL (6.3-8.2)
[2020-06-13 10:33] LABS: D-Dimer 0.18 mg/L FEU (<0.60); Partial Thromboplastin Time 26.6 sec (22.0-30.0); Prothrombin Time 10.4 sec (9.0-12.0)
[2020-06-13] MEDS ORDERED: SODIUM CHLORIDE 0.9% 500 ML 500 ML IV STA (10:56)
[2020-06-13 12:16] VITALS: BP 144/81; PULSE 67
[2020-06-13 13:36] VITALS: TEMP 98
== END 2020-06-13 13:36 | disposition home or self-care (01) ==
LOC: EC 09:05
DX: M79.602 Pain in left arm (principal); J45.909 Unspecified asthma, uncomplicated; F31.9 Bipolar disorder, unspecified; F41.9 Anxiety disorder, unspecified
CPT/HCPCS: 36415; 71046; 80053; 82550; 83735; 84484; 85025; 85379; 85610; 85730; 93005; 96360; 99284

== ENCOUNTER → 2020-07-17 | Outpatient (CLI) | payer MEDICARE ==
--- NOTE | 2020-07-17 13:34 | FL ---
Modified barium swallow. HISTORY: Dysphagia. Modified barium swallow was performed with the department of speech pathology. The patient was prese nted with various consistencies of barium. There is no evidence for aspiration or penetration. Full report is to follow from the department of speech pathology. Impression: Normal study.
== END | disposition home or self-care (01) ==
LOC: RADFLMAIN 08:07
PROVIDERS: ATTEND Internal Medicine Geriatric Medicine
DX: R13.10 Dysphagia, unspecified (principal)
CPT/HCPCS: 74230

== ENCOUNTER → 2020-10-23 | Day surgery (SDC) | payer MEDICARE ==
[2020-10-20 15:03] VITALS: BMI 40.3
[~2020-10-23] MED LIST: IV FLUID CONTINUATION 700 ML IV ONE; LACTATED RINGERS 1,000 ML IV SCH; LIDOCAINE 1% INJ 10MG/ML (20 ML MDV) ONE; PROPOFOL 10 MG/ML 20 ML VIAL IV ONE
[2020-10-23 07:36] VITALS: TEMP 97.8
--- NOTE | 2020-10-23 08:30 | P.GSHP ---
History of Present Illness H&P Date: 10/23/20 Chief Complaint: GERD Is a 60-year-old female with history of GERD. Patient presents today for EGD. Past Medical History Past Medical History: Asthma, Fibromyalgia, Hyperlipidemia, Hypertension, Thyroid Disorder Additional Past Medical History / Comment(s): 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, IBS, constipation, interstitial cystitis, hypoglycemia, "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 autism and aspergers." early macular degeneration, cataracts. History of Any Multi-Drug Resistant Organisms: None Reported Past Surgical History: Back Surgery Additional Past Surgical History / Comment(s): Tens unit/pain stimulator- inserted/removed. Colonoscopy Past Anesthesia/Blood Transfusion Reactions: Motion Sickness Smoking Status: Never smoker - Past Family History Mother Family Medical History: No Reported History Medications and Allergies Home Medications Medication Instructions Recorded Confirmed Type Levothyroxine Sodium [Synthroid] 100 mcg PO DAILY 08/07/13 10/20/20 History OXcarbazepine [Trileptal] 300 mg PO BID 30 Days #60 tab 06/16/17 10/20/20 Rx OLANZapine [ZyPREXA] 5 mg PO HS 06/13/20 10/23/20 History Venlafaxine HCl ER [Effexor Xr] 150 mg PO DAILY 06/13/20 10/20/20 History lamoTRIgine [LaMICtal] 50 mg PO BID 06/13/20 10/20/20 History lamoTRIgine [LaMICtal] 200 mg PO BID 06/13/20 10/20/20 History Acetaminophen [Tylenol Extra 1,000 mg PO BID PRN 10/20/20 10/20/20 History Strength] Aspirin [Adult Low Dose Aspirin EC] 81 mg PO DAILY 10/20/20 10/20/20 History Calcium W/ Vitamin D3 1 tab PO DAILY 10/20/20 History Cholecalciferol [Vitamin D3 (25 50 mcg PO DAILY 10/20/20 10/20/20 History Mcg = 1000 Iu)] Cranberry Fruit Extract [Cranberry] 500 mg PO DAILY 10/20/20 10/20/20 History Cyanocobalamin (Vitamin B-12) 1,000 mcg PO DAILY 10/20/20 10/20/20 History [Vitamin B-12] Magnesium Maleate 420 mg PO DAILY 10/20/20 History Multivitamin For Eyes 1 tab PO DAILY 10/20/20 History Naproxen Sodium [Aleve] 440 mg PO TID PRN 10/20/20 10/20/20 History [place]-3 Fatty Acids [[place]-3] 600 mg PO DAILY 10/20/20 10/20/20 History Pantoprazole Sodium [Protonix] 40 mg PO DAILY 10/20/20 10/20/20 History Ubidecarenone [Co Q-10] 100 mg PO DAILY 10/20/20 10/20/20 History Vitamin B Complex 1 each PO DAILY 10/20/20 10/20/20 History clonazePAM [KlonoPIN] 0.5 mg PO DIRECTED PRN 10/20/20 10/23/20 History diphenhydrAMINE [Benadryl] 50 mg PO HS 10/20/20 10/20/20 History lisinopriL [Zestril] 30 mg PO DAILY 10/20/20 10/23/20 History Allergies Allergy/AdvReac Type Severity Reaction Status Date / Time latex Allergy Severe Rash/Hives, Verified 10/23/20 07:19 severe pain Sulfa (Sulfonamide Allergy Severe Dyspnea Verified 10/23/20 07:19 Antibiotics) Surgical - Exam Vital Signs Temp Pulse Resp BP Pulse Ox 97.8 F 68 15 153/69 96 10/23/20 07:34 10/23/20 07:34 10/23/20 07:34 10/23/20 07:34 10/23/20 07:34 - General well developed, well nourished, no distress - Eyes PERRL - ENT normal pinna - Neck no masses - Respiratory normal expansion - Cardiovascular Rhythm: regular - Abdomen Abdomen: soft, non tender Assessment and Plan Assessment: GERD. We'll perform EGD.
--- NOTE | 2020-10-23 08:38 | P.OP ---
Date of Procedure: 10/23/20 Preoperative Diagnosis: GERD Postoperative Diagnosis: Antral gastritis Procedure(s) Performed: EGD Anesthesia: MAC Surgeon: Gerald Aguilar Pathology: other (Antrum) Condition: stable Disposition: PACU Description of Procedure: The patient's placed on the endoscopy table in the lateral position. She rece ived IV sedation. The gastroscope was oropharynx past esophagus and stomach. Scope was then placed through the pylorus. First and second portion of the duodenum appeared normal. Scope summer back the antrum was mildly inflamed. A biopsies performed. Scope was unretroflexed and remainder the stomach appeared normal. There is no significant hiatal hernia. The GE junction was at 47 is. The distal esophagus appeared normal. The proximal esophagus. Normal. Scope withdrawn for patient. Patiently had some mild gastritis. Patient scheduled for a HIDA scan did not for biliary dysfunction.
[2020-10-23 09:05] VITALS: BP 160/86; PULSE 71; RESP 20
--- NOTE | 2020-10-23 12:36 | NM ---
EXAMINATION TYPE: NM hepatobiliary w CCK DATE OF EXAM: 10/23/2020 COMPARISON: NONE HISTORY: Indigestion TECHNIQUE: After the intravenous administration of 4.85 mCi Tc 99m Mebrofenin hepatobiliary scintigra phy is performed. Immediate images post injection. FINDINGS: There is satisfactory initial accumulation of tracer by the liver. The gallbladder is visualized wit hin 6 minutes. The small bowel activity is noted on delayed images. At one hour CCK was administere d, patient was injected with 2.3 mcg of Kinevac, and gallbladder ejection fraction is calculated at 7 %, abnormal low. IMPRESSION: Abnormal low gallbladder ejection fraction, no evident cystic duct obstruction
== END ==
LOC: ORWHC2ENDO 07:01
PROVIDERS: ATTEND Surgery
DX: K21.9 Gastro-esophageal reflux disease without esophagitis (principal); K29.50 Unspecified chronic gastritis without bleeding; E78.5 Hyperlipidemia, unspecified; I10 Essential (primary) hypertension; M79.7 Fibromyalgia; J45.909 Unspecified asthma, uncomplicated; K58.9 Irritable bowel syndrome, unspecified; N30.10 Interstitial cystitis (chronic) without hematuria; F84.5 Asperger's syndrome; Z79.899 Other long term (current) drug therapy; Z88.2 Allergy status to sulfonamides; Z91.040 Latex allergy status; E07.9 Disorder of thyroid, unspecified; R01.1 Cardiac murmur, unspecified; Z79.82 Long term (current) use of aspirin
CPT/HCPCS: 88305; 78227; 43239; A9537; J2805; J2001; J2704

== ENCOUNTER 2020-11-19 08:26 | Day surgery (SDC) | payer MEDICARE ==
[2020-11-17 10:52] VITALS: BMI 40.3
[~2020-11-19 08:26] MED LIST changes: +ACETAMINOPHEN TAB 500 MG TAB PO PRN; +DEXAMETHASONE SOD PHOSPHATE 4 MG/ML 1 ML VIAL IV ONE; +HEPARIN SODIUM,PORCINE/PF 5,000 UNIT/0.5 ML SYRINGE SQ PRN; +HYDROmorphone 0.5 MG/0.5 ML SYRINGE IVP PRN; -IV FLUID CONTINUATION 700 ML IV ONE; -LIDOCAINE 1% INJ 10MG/ML (20 ML MDV) ONE; +ONDANSETRON 4 MG/2 ML VIAL IVP ONE; -PROPOFOL 10 MG/ML 20 ML VIAL IV ONE
[2020-11-19 09:32] LABS: Glucose,Whole Blood 94 mg/dL (75-99)
[2020-11-19] MEDS ORDERED: LIDOCAINE 1% (10MG/ML) FOR IV START INTRADERMA ONE (09:47)
[2020-11-19] MEDS ORDERED: SCOPOLAMINE 1.5MG/72HR PATCH TRANSDERM ONE (09:48)
--- NOTE | 2020-11-19 10:16 | P.GSHP ---
History of Present Illness H&P Date: 11/19/20 Chief Complaint: Right upper quadrant pain This a 60-year-old female who presents today for laparoscopic cholecystectomy. Patient to complete the right quadrant pain. Her recent HIDA scan shows a diminished ejection fraction. Past Medical History Past Medical History: Asthma, Fibromyalgia, Hyperlipidemia, Hypertension, Thyroid Disorder Additional Past Medical History / Comment(s): 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, IBS, constipation, interstitial cystitis, hypoglycemia, "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 autism and aspergers." early macular degeneration, cataracts. History of Any Multi-Drug Resistant Organisms: None Reported Past Surgical History: Back Surgery Additional Past Surgical History / Comment(s): Tens unit/pain stimulator-inserted/removed. Colonoscopy Past Anesthesia/Blood Transfusion Reactions: Motion Sickness Past Psychological History: Anxiety, Bipolar, Panic Disorder, PTSD Smoking Status: Never smoker Past Alcohol Use History: None Reported Past Drug Use History: None Reported - Past Family History Mother Family Medical History: No Reported History Medications and Allergies Home Medications Medication Instructions Recorded Confirmed Type Levothyroxine Sodium [Synthroid] 100 mcg PO DAILY 08/07/13 11/17/20 History OXcarbazepine [Trileptal] 300 mg PO BID 30 Days #60 tab 06/16/17 11/17/20 Rx OLANZapine [ZyPREXA] 5 mg PO HS 06/13/20 11/17/20 History Venlafaxine HCl ER [Effexor Xr] 150 mg PO DAILY 06/13/20 11/17/20 History lamoTRIgine [LaMICtal] 250 mg PO BID 06/13/20 11/17/20 History Acetaminophen [Tylenol Extra 1,000 mg PO BID PRN 10/20/20 11/17/20 History Strength] Aspirin [Adult Low Dose Aspirin EC] 81 mg PO DAILY 10/20/20 11/17/20 History Calcium W/ Vitamin D3 1 tab PO DAILY 10/20/20 11/17/20 History Cholecalciferol [Vitamin D3 (25 50 mcg PO DAILY 10/20/20 11/17/20 History Mcg = 1000 Iu)] Cranberry Fruit Extract [Cranberry] 500 mg PO DAILY 10/20/20 11/17/20 History Cyanocobalamin (Vitamin B-12) 1,000 mcg PO DAILY 10/20/20 11/17/20 History [Vitamin B-12] Magnesium Maleate 420 mg PO DAILY 10/20/20 11/17/20 History Multivitamin For Eyes 1 tab PO DAILY 10/20/20 11/17/20 History Naproxen Sodium [Aleve] 440 mg PO TID PRN 10/20/20 11/17/20 History [place]-3 Fatty Acids [[place]-3] 600 mg PO DAILY 10/20/20 11/17/20 History Pantoprazole Sodium [Protonix] 40 mg PO DAILY 10/20/20 11/17/20 History Ubidecarenone [Co Q-10] 100 mg PO DAILY 10/20/20 11/17/20 History Vitamin B Complex 1 each PO DAILY 10/20/20 11/17/20 History clonazePAM [KlonoPIN] 0.5 mg PO DIRECTED PRN 10/20/20 11/17/20 History diphenhydrAMINE [Benadryl] 50 mg PO HS 10/20/20 11/17/20 History lisinopriL [Zestril] 30 mg PO DAILY 10/20/20 11/17/20 History Allergies Allergy/AdvReac Type Severity Reaction Status Date / Time latex Allergy Severe Rash/Hives, Verified 11/17/20 10:41 severe pain Sulfa (Sulfonamide Allergy Severe Dyspnea Verified 11/17/20 10:41 Antibiotics) Surgical - Exam Vital Signs Temp Pulse Resp BP Pulse Ox 97.6 F 71 20 175/72 96 11/19/20 09:05 11/19/20 09:05 11/19/20 09:05 11/19/20 09:05 11/19/20 09:05 - General well developed, well nourished, no distress - Eyes PERRL - ENT normal pinna - Neck no masses - Respiratory normal expansion - Cardiovascular Rhythm: regular - Abdomen Abdomen: soft, non tender Assessment and Plan Assessment: Right upper quadrant pain Biliary hypokinesia Chronic cholestasis We'll perform laparoscopic cholecystectomy.
[2020-11-19] MEDS ORDERED: GLYCOPYRROLATE 0.2 MG/ML 2 ML VIAL ONE (10:25)
[2020-11-19] MEDS ORDERED: HYDROmorphone (PF) 1 MG/ML ONE (10:25)
[2020-11-19] MEDS ORDERED: NEOSTIGMINE 1 MG/ML 10 ML VIAL ONE (10:25)
[2020-11-19] MEDS ORDERED: MIDAZOLAM 2 MG/2 ML VIAL ONE (10:25)
[2020-11-19] MEDS ORDERED: LIDOCAINE 1% INJ 10MG/ML (20 ML MDV) ONE (10:25)
[2020-11-19] MEDS ORDERED: PROPOFOL 10 MG/ML 20 ML VIAL IV ONE (10:25)
[2020-11-19] MEDS ORDERED: fentaNYL (PF) 50 MCG/ML 2 ML AMP ONE (10:25)
[2020-11-19] MEDS ORDERED: KETOROLAC 15 MG/ML 1 ML VIAL ONE (10:25)
[2020-11-19] MEDS ORDERED: SUCCINYLCHOLINE CHLORIDE VIAL 200 MG/10 ML VIAL IV ONE (10:25)
[2020-11-19] MEDS ORDERED: ROCURONIUM 10 MG/ML (5 ML VIAL) IV ONE (10:25)
[2020-11-19] MEDS ORDERED: IPRATROPIUM-ALBUTEROL 3 ML NEB INHALATION STA (10:39)
[2020-11-19] MEDS ORDERED: BUPIVACAINE (PF) 0.25% 30 ML VIAL SQ ONE (10:58)
--- NOTE | 2020-11-19 11:11 | P.OP ---
Date of Procedure: 11/19/20 Preoperative Diagnosis: Chronic cholecystitis Postoperative Diagnosis: Chronic cholecystitis Procedure(s) Performed: Laparoscopic cholecystectomy Anesthesia: ELI Surgeon: Gerald Aguilar Estimated Blood Loss (ml): 5 Pathology: other (Gallbladder) Condition: stable Disposition: PACU Description of Procedure: The patient was placed on the operating table. The patient received a general endotracheal tube anesthesia. The patients abdomen was prepped and draped in the usual sterile fashion. Through an infraumbilical stab incision, the fascia of the anterior abdominal wall was grasped with a pair of Kochers and then the Veress needle was placed in the peritoneal cavity. Position of the Veress needle was confirmed with positive drop test. The abdomen was then insufflated. After adequate insufflation, the 10 mm trocar was placed in the peritoneal cavity. Following this the laparoscope was placed in the peritoneal cavity. The patient was placed in the head-up, right side up position and then a 5 mm trocar was placed in the right lateral and right subcostal position under direct visualization. A 8 mm trocar was placed in the epigastric position. The gallbladder was grasped in the fundus and infundibulum. Traction on the gallbladder was placed in the lateral and the cephalad positions. The triangle of Calot was visualized.. The cystic duct was bluntly dissected until the union of the cystic duct and common bile duct was seen. A critical view of safety was achieved. The cystic duct was then divided and sealed with the Harmonic scissors. A PDS Endoloop was then placed throughout the cystic duct stump. The cystic artery divided and sealed with the Harmonic scissors. The gallbladder was then removed from the liver bed using Harmonic scissors. The gallbladder was then extracted through the epigastric port site. Operative field was checked for any bleeding spots and Harmonic scissors was used to coagulate the liver bed. The abdomen was irrigated. The trocars were removed. The skin was closed using interrupted 3-0 Vicryl suture. Dermabond dressing were applied. The patient tolerated the procedure well.
[2020-11-19 11:20] LABS: Glucose,Whole Blood 111 mg/dL (75-99)
[2020-11-19 11:25] VITALS: TEMP 98.4
[2020-11-19] MEDS ORDERED: IBUPROFEN 200 MG TAB PO ONE (12:38)
[2020-11-19 13:26] VITALS: PULSE 71; RESP 16
[2020-11-19 15:28] VITALS: BP 138/72
== END 2020-11-19 15:56 | disposition home or self-care (01) ==
LOC: OR 08:26
PROVIDERS: ATTEND Surgery
DX: K81.1 Chronic cholecystitis (principal); J45.909 Unspecified asthma, uncomplicated; M79.7 Fibromyalgia; E78.5 Hyperlipidemia, unspecified; I10 Essential (primary) hypertension; E07.9 Disorder of thyroid, unspecified; R01.1 Cardiac murmur, unspecified; K58.1 Irritable bowel syndrome with constipation; E16.1 Other hypoglycemia; F84.5 Asperger's syndrome; H35.30 Unspecified macular degeneration; H26.9 Unspecified cataract; Z98.890 Other specified postprocedural states; F41.9 Anxiety disorder, unspecified; F31.9 Bipolar disorder, unspecified; F41.0 Panic disorder [episodic paroxysmal anxiety]; F43.10 Post-traumatic stress disorder, unspecified; Z79.82 Long term (current) use of aspirin; Z79.890 Hormone replacement therapy; Z79.899 Other long term (current) drug therapy; Z88.2 Allergy status to sulfonamides; Z91.040 Latex allergy status
CPT/HCPCS: 88304; 47562; J2250; J0330; J1100; J2710; J0690; J2405; J2001; J3010; J1170; J1885; J2704; J1644

== ENCOUNTER → 2022-01-28 | Outpatient (CLI) | payer MEDICARE ==
--- NOTE | 2022-01-28 17:27 | BD ---
EXAMINATION TYPE: Axial Bone Density DATE OF EXAM: 01/28/2022 COMPARISON: 11/02/2017 CLINICAL HISTORY: 61 years year old Female. ICD-10 CODE: M81.0 OSTEOPOROSIS Height: 65.5 Weight: 243.5 FRAX RISK QUESTIONS: Alcohol (3 or more units per day): NO Family History (Parent hip fracture): NO Glucocorticoids (More than 3mos): NO History of Fracture in Adulthood: TOE Secondary Osteoporosis: 1. Type 1 Diabetes: NO 2. Hyperthyroidism: NO 3. Menopause before 45: NO 4. Malnutrition: NO 5. Chronic liver disease: NO Rheumatoid Arthritis: NO Current Tobacco Use: NO RISK FACTORS HISTORY OF: Hip Fracture (Right/Left): NO Spine Fracture: NO History of Wrist Fracture: NO Surgery to Spine/Hip(right/left)/Wrist (right/left): NO Family History of Osteoporosis: NO Active: NO Diet low in dairy products/other sources of calcium: YES Postmenopausal woman: YES Take estrogen and/or progesterone medications: NO Lost more than 2 inches in height since high school: NO Frequent falls: NO Poor Health: NO Hyperparathyroidism: NO Adrenal Insufficiency: NO MEDICATIONS: Prednisone or other steroids: NO Thyroid Medications: LEVOTHYROXIN How Long: PAST 10 YEARS Osteoporosis Medications: NO Additional Medications: BI-POLAR MEDS, LEVOTHYROXINE, CHOLESTEROL MEDS, LISINOPRIL, ANXIETY MEDS, VIT D, CALCIUM, MULTI VIT., EXAM MEASUREMENTS: Bone mineral densitometry was performed using the [employer] System. Bone mineral density as measured about the Lumbar spine is: ----- L1-L4(G/cm2): 1.034 T Score Values are as follows: ----- L1: -2.3 ----- L2: -2.3 ----- L3: -0.5 ----- L4: -0.2 ----- L1-L4: -1.2 Bone mineral density has: INCREASED 3.8 % since study of: 11/02/2017 Bone mineral density about the R hip (g/cm2): 0.968 Bone mineral density about the L hip (g/cm2): 0.889 T Score values are as follows: -----R Neck: -0.5 -----L Neck: -1.1 -----R Total: -0.6 -----L Total: -0.8 Bone mineral density has: DECREASED -2.3 % since study of: 11/02/2017 FRAX%s: The graph provided illustrates a 11.1% chance for a major osteoporotic fx and a 0.6% chance f or the hips probability for fx in 10 years time. IMPRESSION: Osteopenia (T Score between -2.5 and -1). There is slightly increased risk of fracture and the patient may be considered for treatment. Re-Screen 2-5 years. NOTE: T-SCORE=SD OF THE YOUNG ADULT MEAN.
--- NOTE | 2022-01-29 18:34 | MM ---
Reason for Exam: Screening (asymptomatic). Last mammogram was performed 4 year(s) and 3 month(s) ago. Patient History: Menarche at age 13. First Full-Term at age 23. Postmenopausal. Patient has history of breast feeding. Patient used Hormonal Contraceptives for 8 years. Paternal aunt had breast cancer, age 70. Risk Values: Lizbeth 5 year model risk: 1.3%. NCI Lifetime model risk: 6.6%. Prior Study Comparison: 06/05/2012 Right Diagnostic Mammogram, [facility]. 06/27/2013 Bilateral Screening Mammogram, [facility]. 11/02/2017 Bilateral Screening Mammogram, [facility]. Tissue Density: There are scattered fibroglandular densities. Findings: Analyzed By CAD. Unchanged focal asymmetry lateral subareolar right breast. There is no suspicious group of microcalcifications or new suspicious mass in either breast. Overall Assessment: Benign, BI-RAD 2 Management: Screening Mammogram of both breasts in 1 year. 1. Patient should continue monthly self breast exams. 2. A clinical breast exam by your physician is recommended on an annual basis. 3. This exam should not preclude additional follow-up of suspicious palpable abnormalities. Electronically signed and approved by: Kinga Gtz M.D. Radiologist
== END | disposition home or self-care (01) ==
LOC: RADMAMWWP 15:58
PROVIDERS: ATTEND Internal Medicine Geriatric Medicine
DX: Z12.31 Encounter for screening mammogram for malignant neoplasm of breast (principal); M85.89 Other specified disorders of bone density and structure, multiple sites; Z78.0 Asymptomatic menopausal state; Z80.3 Family history of malignant neoplasm of breast; Z79.52 Long term (current) use of systemic steroids
CPT/HCPCS: 77063; 77067; 77080

== ENCOUNTER 2022-10-12 08:21 | Day surgery (SDC) | payer MEDICARE ==
[2022-10-05 13:17] VITALS: BMI 40.3
[2022-10-12] MEDS ORDERED: LACTATED RINGERS 1,000 ML IV SCH (08:47)
[2022-10-12] MEDS ORDERED: LIDOCAINE 1% (10MG/ML) FOR IV START INTRADERMA PRN (08:47)
[2022-10-12] MEDS ORDERED: LACTATED RINGERS 1,000 ML IV ONE (08:47)
[2022-10-12 08:52] VITALS: TEMP 97.4
[2022-10-12] MEDS ORDERED: PROPOFOL 10 MG/ML 20 ML VIAL IV ONE (09:59)
--- NOTE | 2022-10-12 10:18 | P.PCN ---
Date of Procedure: 10/12/22 Procedure(s) Performed: BRIEF HISTORY: Patient is a 62-year-old pleasant white female scheduled for an elective colonoscopy as a part of screening for colon cancer. She also has been complaint of intermittent rectal prolapse for the last 10 years duration. PROCEDURE PERFORMED: Colonoscopy with biopsy. PREOPERATIVE DIAGNOSIS: Screening for colon cancer. IV sedation per Anesthesia. PROCEDURE: After informed consent was obtained, the patient, was brought into the endoscopy unit. IV sedation was administered by Anesthesia under continuous monitoring. Digital rectal examination was normal. Initially the Olympus CF-160 flexible video colonoscope was then inserted in the rectum, gradually advanced into the cecum without any difficulty. Careful examination was performed as the scope was gradually being withdrawn. Ileocecal valve and the appendiceal orifice were visualized and appeared normal. Prep was excellent. Mucosa of the cecum, ascending colon, transverse colon, descending colon, sigmoid colon, appeared normal. In the distal rectum there was mucosal erythema noted extending 3-4 cm proximal to the dentate line suspicious for proctitis versus rectal prolapse. Biopsies were done from this area. Retroflexion was performed in the rectum and no lesions were seen. The patient tolerated the procedure well. IMPRESSION: Mild mucosal erythema noted in the distal rectum probably related to rectal prolapse Scattered sigmoid diverticulosis. RECOMMENDATIONS: Findings of this examination were discussed with the patient as well as a family. She was advised to follow with the biopsy results. Recommend a high-fiber diet and fiber supplements a regular basis and avoid straining and constipation.. Recommend repeat screening colonoscopy in 10 years.
[2022-10-12 10:25] VITALS: RESP 20
[2022-10-12 10:44] VITALS: BP 141/83; PULSE 59
== END 2022-10-12 10:54 | disposition home or self-care (01) ==
LOC: ORWHC2ENDO 08:21
PROVIDERS: ATTEND Internal Medicine Gastroenterology
DX: Z12.11 Encounter for screening for malignant neoplasm of colon (principal); K62.3 Rectal prolapse; K57.30 Diverticulosis of large intestine without perforation or abscess without bleeding; Z91.040 Latex allergy status; Z88.2 Allergy status to sulfonamides
CPT/HCPCS: 88305; 45380; J2704

== ENCOUNTER → 2023-11-01 | Outpatient (CLI) | payer MEDICARE ==
--- NOTE | 2023-11-01 10:27 | US ---
EXAMINATION TYPE: US arterial LE single level DATE OF EXAM: 11/01/2023 10:13 AM CLINICAL INDICATION: Female, 63 years old with history of I73.9 PAD; PAD History of: Smoker: No Hypertension: Yes Diabetic: No Hyperlipidemia: Yes TIA/CVA: No Previous Vascular Surgery: No CAD: No [place]: No Vascular Ulcers: No Claudication: No Gangrene: No Doppler Waveforms: Right: Multiphasic Left: Multiphasic Right Brachial Pressure: 159 Left Brachial Pressure: 163 Ankle-Brachial Indices: Right: 1.12 Left: 1.10 (Vessel hardening > 1.4; Normal 0.9 - 1.4, Moderate 0.7 - 0.9, Severe 0.5-0.7) Toe Brachial Indices: Right: 0.55 Left: 0.55 IMPRESSION: Normal bilateral JAMA.
== END | disposition home or self-care (01) ==
LOC: RADUSWWP 09:31
PROVIDERS: ATTEND Internal Medicine Geriatric Medicine
DX: I73.9 Peripheral vascular disease, unspecified
CPT/HCPCS: 93922